=== PATIENT | male | born 1935 | race Caucasian/White ===

== ENCOUNTER 2019-03-02 17:08 | Emergency (ER) | payer MEDICARE, BC ==
[~2019-03-02] VITALS: Ht 177.8 cm; Wt 89.1 kg
[~2019-03-02 17:08] MED LIST: ALPR-624 PO; ASPI81TA52 PO; ATOR10TA PO; CARV-50 PO; CLOP75TA35 PO; ENAL5TAB85 PO; HYDR-4353 PO; ISOS30TA PO; LISI-604 PO; RES15C PO
[2019-03-02 17:21] VITALS: BP 128/59
[2019-03-02] MEDS ORDERED: LIDOcaine 1% w/epiNEPHrine 1:200,000 30ml vial IM ONE (17:25)
[2019-03-02] MEDS ORDERED: TETanus/Pertussis (Acell)/Diphther VAC/PF (Tdap-Adult) 0.5ml syringe IM ONE (17:25)
[2019-03-02] MEDS ORDERED: CEPH-571 PO (17:43)
[2019-03-02] MEDS ORDERED: DOXY100C43 PO (17:43)
== END 2019-03-02 18:47 | disposition home or self-care (01) ==
LOC: ER 17:09
DX: L02.413 Cutaneous abscess of right upper limb (principal); I10 Essential (primary) hypertension; I25.10 Atherosclerotic heart disease of native coronary artery without angina pectoris; C61 Malignant neoplasm of prostate; Z79.82 Long term (current) use of aspirin; Z95.0 Presence of cardiac pacemaker; Z79.2 Long term (current) use of antibiotics; Z79.899 Other long term (current) drug therapy
CPT/HCPCS: 10060; 90471; 99283